=== PATIENT | female | born 1965 | race Hispanic/Latino ===

== ENCOUNTER 2024-02-01 06:01 | Day surgery (SDC) | payer OTHER ==
[2024-02-01] VITALS (11 sets, daily range): BP systolic 91–128; BP diastolic 45–73; PULSE 59–72; RESP 15–18; TEMP 97–98
[~2024-02-01] VITALS: Ht 152.4 cm; Wt 93.9 kg
[2024-02-01] MEDS ORDERED: FLUT1BLS3 IH (07:09)
[2024-02-01] MEDS ORDERED: FAMO40TA7 PO (07:09)
[2024-02-01] MEDS ORDERED: LINA5TAB PO (07:09)
[2024-02-01] MEDS ORDERED: ASPI-1005 PO (07:09)
[2024-02-01] MEDS ORDERED: LOSA25TA41 PO (07:09)
[2024-02-01] MEDS ORDERED: ATOR10 PO (07:09)
[2024-02-01] MEDS ORDERED: SEMA1PEN3 SQ (07:09)
[2024-02-01] MEDS ORDERED: ERGO500093 PO (07:09)
[2024-02-01] MEDS: 0.9%NACL 1000ML 1,000 ML IV ONE (07:25)
[2024-02-01] MEDS ORDERED: proPOFol 10 MG/ML 20ML VIAL IV ONE (08:20)
== END 2024-02-01 10:00 | disposition home or self-care (01) ==
LOC: DAH 06:01
PROVIDERS: ATTEND Internal Medicine Gastroenterology
DX: K59.04 Chronic idiopathic constipation (principal); D12.0 Benign neoplasm of cecum; K29.50 Unspecified chronic gastritis without bleeding; K57.30 Diverticulosis of large intestine without perforation or abscess without bleeding; K31.89 Other diseases of stomach and duodenum; R11.0 Nausea; R12 Heartburn; I10 Essential (primary) hypertension; E11.9 Type 2 diabetes mellitus without complications; G47.33 Obstructive sleep apnea (adult) (pediatric); Z90.49 Acquired absence of other specified parts of digestive tract; Z79.82 Long term (current) use of aspirin; Z79.899 Other long term (current) drug therapy
CPT/HCPCS: 82948 ×2; 43239; 45385; J7030 ×2; J2704; A4620; A4215 ×2; A4223; A4657; A7002; A4222; A4221; A4663; A4606; J3490